=== PATIENT | male | born 1960 | race Two or more races ===

== ENCOUNTER 2016-09-24 17:01 | Emergency (ER) | payer SELFPAY ==
[~2016-09-24] VITALS: Ht 170.2 cm; Wt 90.0 kg
[2016-09-24] MEDS ORDERED: SIMV20TA6 PO (17:10)
[2016-09-24] MEDS ORDERED: ASPI-1035 PO (17:10)
[2016-09-24] MEDS ORDERED: OMEP20TA80 PO (17:10)
[2016-09-24] MEDS ORDERED: ATEN-42 PO (17:10)
[2016-09-24] MEDS ORDERED: LOSA50TA20 PO (17:10)
[2016-09-24] MEDS: METHYLPREDNISOLONE SOD SUCC 125 MG/2 ML VIAL IV ONE (18:52)
[2016-09-24 19:24] VITALS: BP 142/91
== END 2016-09-24 20:41 | disposition home or self-care (01) ==
LOC: ER 17:02
DX: T78.40XA Allergy, unspecified, initial encounter (principal); L50.0 Allergic urticaria; I10 Essential (primary) hypertension; Z79.82 Long term (current) use of aspirin; Z79.899 Other long term (current) drug therapy; Z95.0 Presence of cardiac pacemaker
CPT/HCPCS: 96374; 99284; J2930; Z7610